=== PATIENT | female | born 1970 | race Caucasian/White ===

== ENCOUNTER 2019-11-04 11:24 | Emergency (ER) | payer OTHER, SELFPAY ==
[2019-11-04 11:54] VITALS: BP 98/68; PULSE 93; RESP 20; TEMP 36.8; O2SAT 98
--- NOTE | 2019-11-04 12:25 | ED.URI ---
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 She reports occasional wheeze, sinus pressure, a PITTMAN, and a productive cough with green phlegm, but denies a sore throat.Pt has been evaluated at 3 times over the past few months. Pt was diagnosed with bronchitis at the first visit and was prescribed Prednisone. Pt states that she has been having intermittent low grade fevers over the past 3 days. Pt notes that she has allergies and she takes Zyrtec daily. Pt gets allergy shots every month. Pt is not around any smokers at home, but has cats that sleep in the same room. Pt uses an inhaler when sick but does not have a nebulizer. Onset (ago): month(s) (few) Description of mucous: green Related Data Home Medications Medication Instructions Recorded Confirmed lisinopril 20 mg DAILY 08/25/19 11/04/19 sertraline 25 mg DAILY 08/25/19 11/04/19 cetirizine [Zyrtec] 10 mg PO DAILY 09/23/19 11/04/19 levonorgestrel [Mirena] 1 device INTRAUTERINE ONCE 11/04/19 11/04/19 Allergies Allergy/AdvReac Type Severity Reaction Status Date / Time erythromycin base Allergy Unknown Vomiting Verified 11/04/19 11:52 Sulfa (Sulfonamide Allergy Unknown Vomiting Verified 11/04/19 11:52 Antibiotics) Review of Systems Review of Systems: Narrative: General/Constitutional: Reports: intermittent low grade fevers; Denies: weight loss Eyes: Denies: Redness,discharge Ears/Nose/Throat: Reports: sinus and chest congestion, sinus pressure; Denies: Epistaxis,ear discharge, sore throat Respiratory: Reports: occasional wheeze, productive cough with green phlegm; Denies: Hemoptysis Cardiovascular: Reports: CP Gastrointestinal: Denies: Vomiting, Bleeding-rectal Skin: Denies: Lumps, eruption Neurologic: Reports: PITTMAN; Denies: Focal Weakness,Sz Hematologic: Denies: Petechiae/Purpura Psychiatric: Denies: Suicidal ideation All systems reviewed & are unremarkable except as noted in HPI and below PMFSH Past Medical History Medical History Anxiety Asthma Depression Hypertension Social History Social History Smoking status: Never smoker Alcohol intake: never Gender identity (if verbalized by the patient): Female Comments PCP: Dr. Gonzalez At time of signature, agree with nursing past medical, surgical, social and family history. There is no relevant family history pertinent to the presenting complaint Exam Narrative: Exam Narrative: General Appearance: Well appearing, Well nourished EYE: PERRLA, Conjunctiva clear Ears: Auditory canal normal, TM normal Nose: Rhinorrhea, Mucousal erythema Mouth/Throat: MM moist, Uvula midline, Pharyngeal erythema Neck: Supple, No adenopathy Respiratory: No respiratory distress, Breath sounds equal, Clear to auscultation Cardiovascular: RRR, No JVD Musculoskeletal: Non tender, Normal strength Skin: Warm, Dry Neurological: A&O x3, CN II-XII intact Psychiatric: Normal mood, Normal affect Course Vital Signs Vital signs: Vital Signs Temperature 98.3 F 11/04/19 11:54 Pulse Rate 93 11/04/19 11:54 Respiratory Rate 11/04/19 11:54 Blood Pressure 98/68 L 11/04/19 11:54 Pulse Oximetry 98 11/04/19 11:54 Temperature 98.3 F 11/04/19 11:54 Pulse Rate 93 11/04/19 11:54 Respiratory Rate 11/04/19 11:54 Blood Pressure 98/68 L 11/04/19 11:54 Pulse Oximetry 98 11/04/19 11:54 MDM - URI/Sore Throat Lab Data Labs: Influenza A Screen Negative Reference Range: Negative Influenza B S
== END 2019-11-04 12:50 | disposition home or self-care (01) ==
PROVIDERS: Emergency Provider Emergency Medicine
DX: J11.1 Influenza due to unidentified influenza virus with other respiratory manifestations (principal); I10 Essential (primary) hypertension; E78.00 Pure hypercholesterolemia, unspecified
CPT/HCPCS: 87804; 99213; G0463

== ENCOUNTER 2022-09-11 11:07 | Emergency (ER) | payer BC, SELFPAY ==
[2022-09-11 11:30] VITALS: BP 132/91; PULSE 76; RESP 18; TEMP 36.2; O2SAT 100
--- NOTE | 2022-09-11 11:51 | ED.URI ---
HPI - URI/Sore Throat General Chief Complaint: Upper Respiratory Infection Stated Complaint: Sore Throat,Bilateral Ear Irritation,Congestion Time Seen by Provider: 09/11/22 11:53 History of Present Illness HPI Narrative: 51-year-old female presented for complaint of sore throat and fever for 2 days. She does a temperature up to 101 last night. She endorses known exposure to strep. She endorses mild sinus congestion and drainage with ear pressure. Denies shortness of breath, wheezing, nausea, vomiting, diarrhea. She takes occasional Tylenol or ibuprofen for symptoms. She takes allergy medication per usual. Related Data Home Medications Medication Instructions Recorded Confirmed lisinopril 20 mg tablet 20 mg DAILY 08/25/19 09/11/22 sertraline 25 mg tablet 25 mg DAILY 08/25/19 09/11/22 cetirizine 10 mg capsule (Zyrtec) 10 mg PO DAILY 09/23/19 09/11/22 levonorgestrel 20 mcg/24 hours (8 1 device intrauterine ONCE 11/04/19 09/11/22 yrs) 52 mg intrauterine device (Mirena) Allergies Allergy/AdvReac Type Severity Reaction Status Date / Time erythromycin base AdvReac Intermediate Nausea and Verified 09/11/22 11:45 Vomiting Sulfa (Sulfonamide AdvReac Intermediate Nausea and Verified 09/11/22 11:45 Antibiotics) Vomiting Review of Systems Review of Systems: CONSTITUTIONAL: Denies body aches EYES: Denies visual changes, redness, or discharge. ENT: reports rhinorrhea, congestion, sore throat, otalgia. CARDIOVASCULAR: Denies chest pain, palpitations, or edema. RESPIRATORY: Denies dyspnea. GASTROINTESTINAL: Denies abdominal pain, nausea, vomiting, or diarrhea. SKIN: Denies rash, itching, or wounds. MUSCULOSKELETAL: Denies back pain, joint pain, or myalgia. NEUROLOGIC: Denies headache PMFSH Past Medical History Medical History Anxiety Asthma Depression Hypertension Social History Social History Smoking status: Never smoker Alcohol intake: never Gender identity (if verbalized by the patient): Female Exam Narrative: GENERAL: Ill-appearing, no acute distress. EYES: conjunctivae clear ENT: Mucous membranes moist. TMs pearly milner with normal light reflex bilaterally; no tragal tenderness. Oropharynx erythematous Tonsils enlarged 2+ with right exudate. No drooling, no hoarseness, no trismus, uvula midline. No tripod positioning, hot potato voice, or soft palate swelling. NECK: Supple. No lymphadenopathy CHEST: Clear to auscultation, breath sounds equal. No respiratory distress, speaks in full sentences. HEART: Regular rate and rhythm. No murmur heard. SKIN: Warm, dry, no rash. NEURO: Alert and oriented x3. Course Course Emergency Course: Patient is aware of diagnosis, understands and agrees to treatment plan. Anticipatory guidance given. Patient agrees to follow-up as directed and is aware of reasons to seek care at the emergency department. Portions of this record may have been created with voice recognition software Level of Care: Express Care Visit Vital Signs Vital signs: Vital Signs Temperature 97.2 F L 09/11/22 11:30 Pulse Rate 76 09/11/22 11:30 Respiratory Rate 18 09/11/22 11:30 Blood Pressure 132/91 H 09/11/22 11:30 Pulse Oximetry 100 09/11/22 11:30 Oxygen Delivery Room Air 09/11/22 11:30 Temperature 97.2 F L 09/11/22 11:30 Pulse Rate 76 09/11/22 11:30 Respiratory Rate 18 09/11/22 11:30 Blood Pressure 132/91 H 09/11/22 11:30 Pulse Oximetry 100 09/11/22 11:30 Oxygen Delivery Room Air 09/11/22 11:30 MDM - URI/Sore Throat MDM Narrative Medical decision making narrative: Due to lack of resources, unable to test for rapid strep at this time. Will treated based on PE. Patient verbalizes understanding. Advised supportive measures and signs and symptoms to go to the ER. Patient is appropriate for outpatient treatmen
== END 2022-09-11 12:05 | disposition home or self-care (01) ==
PROVIDERS: Emergency Provider Nurse Practitioner Family
DX: J02.9 Acute pharyngitis, unspecified (principal); J45.909 Unspecified asthma, uncomplicated; I10 Essential (primary) hypertension; F41.9 Anxiety disorder, unspecified; F32.A Depression, unspecified
CPT/HCPCS: 99213; G0463